=== PATIENT | female | born 1990 | race Caucasian/White ===

== ENCOUNTER 2016-04-30 10:15 | Emergency (ER) | payer MEDICAID ==
[2010-03-27 19:12] VITALS: BMI 26.6
[2016-04-30 11:09] LABS: APPEARANCE CLEAR (CLEAR); COLOR YELLOW (YELLOW); SPECIFIC GRAVITY 1.015 (1.005-1.020)
[2016-04-30 11:10] LABS: BACTERIA FEW /hpf (NONE SEEN); BILIRUBIN NEGATIVE (NEGATIVE); EPITHELIAL CELLS 0-5 /hpf (0-5); GLUCOSE NEGATIVE (NEGATIVE); HYALINE CAST 0-5 /lpf (NONE SEEN); KETONE NEGATIVE (NEGATIVE); LEUKOCYTE ESTERASE TRACE (NEGATIVE); MUCUS <1+ /lpf (NONE SEEN); NITRITE NEGATIVE (NEGATIVE); PROTEIN NEGATIVE (NEGATIVE); RED CELLS - URINE 0-5 /hpf (0-5); UROBILINOGEN NORMAL (NORMAL); WHITE CELLS - URINE OCC /hpf (0-5)
== END 2016-04-30 11:56 | disposition home or self-care (01) ==
LOC: D.ER 10:15
PROVIDERS: Family Medicine
DX: N89.8 Other specified noninflammatory disorders of vagina (principal); F17.200 Nicotine dependence, unspecified, uncomplicated